=== PATIENT | male | born 1975 | race Caucasian/White ===

== ENCOUNTER 2022-01-11 23:52 | Emergency (ER) | payer MEDICAID ==
[~2022-01-11] VITALS: Ht 177.8 cm; Wt 88.6 kg
[2022-01-11 23:57] VITALS: BP 108/72
== END 2022-01-12 01:20 | disposition left against medical advice (07) ==
LOC: ER 23:54
DX: T14.8XXA Other injury of unspecified body region, initial encounter (principal); Z53.21 Procedure and treatment not carried out due to patient leaving prior to being seen by health care provider; W57.XXXA Bitten or stung by nonvenomous insect and other nonvenomous arthropods, initial encounter; Y93.89 Activity, other specified; Y92.89 Other specified places as the place of occurrence of the external cause; Y99.8 Other external cause status
CPT/HCPCS: A4620